=== PATIENT | female | born 2000 | race African-American/Black ===

== ENCOUNTER 2023-01-17 19:45 | Emergency (ER) | payer OTHER, SELFPAY ==
[2023-01-17 19:50] VITALS: BP 118/77; PULSE 79; RESP 16; TEMP 37.2; O2SAT 100; BMI 25.4
--- NOTE | 2023-01-17 20:08 | ED_ITS ---
HPI - Dental/Oral General Chief complaint: Dental/Oral Stated complaint: DENTAL PAIN Time Seen by Provider: 01/17/23 19:46 History of Present Illness HPI Narrative: patient is a 22-year-old female who presents to the emergency department for the evaluation of painful sores in her mouth. She states several days ago she was having oral sex with her male partner and now has noticed in the last day several vesicles on the inside of the left cheek and on the left side of the mouth. She does not believe her partner had any symptoms or lesions. She has no history of herpes. There has been no drainage from the area. No pain in the teeth. No medications given prior to arrival. She is not concerned for . Related Data Previous Rx's Medication Instructions Recorded acyclovir 800 mg tablet See Rx Instructions .Route 01/17/23 .COMPLEX #35 tabs ketorolac 10 mg tablet 10 mg PO TID PRN pain #10 tabs 01/17/23 ondansetron 4 mg disintegrating 4 mg PO Q6H PRN nausea and 01/17/23 tablet vomiting #12 tabs Allergies Allergy/AdvReac Type Severity Reaction Status Date / Time acetaminophen [From [place]] Allergy Hives Verified 01/17/23 19:54 hydrocodone [From [place]] Allergy Hives Verified 01/17/23 19:54 Penicillins Allergy Hives Verified 01/17/23 19:54 Review of Systems ROS Constitutional Denies: fever or chills Ears, nose, mouth, and throat Denies: throat pain Cardiovascular Denies: chest pain Respiratory Denies: shortness of breath or cough Gastrointestinal Denies: nausea or vomiting Musculoskeletal Denies: back pain Integumentary/Breast Denies: rash Exam Narrative Exam Narrative: Gen.: Awake, alert, in no distress Head: Normocephalic, atraumatic ENT: Moist mucous membranes, cluster of three vesicles on the inner corner of the left with no large open wounds or purulence. Small vesicles noted to the left posterior tongue. Airway is widely open and patent. Uvula midline. No trismus or drooling. No redness or swelling under the tongue. No petechiae or purpura Respiratory: No respiratory distress Psych: Normal mood and affect Neuro: No focal neuro deficit Skin: Warm, dry, intact Constitutional Vital Signs, click to edit/add: Last Vital Signs Temp 99.0 F 01/17/23 19:50 Pulse 79 01/17/23 19:50 Resp 16 01/17/23 19:50 BP 118/77 01/17/23 19:50 Pulse Ox 100 01/17/23 19:50 Course Vital Signs Vital signs: Vital Signs Temperature 99.0 F 01/17/23 19:50 Pulse Rate 79 01/17/23 19:50 Respiratory Rate 16 01/17/23 19:50 Blood Pressure 118/77 01/17/23 19:50 Pulse Oximetry 100 01/17/23 19:50 Temperature 99.0 F 01/17/23 19:50 Pulse Rate 79 01/17/23 19:50 Respiratory Rate 16 01/17/23 19:50 Blood Pressure 118/77 01/17/23 19:50 Pulse Oximetry 100 01/17/23 19:50 MDM - Dental/Oral MDM Narrative Medical decision making narrative: exam is consistent with gingivostomatitis, likely from HSV infection. Patient had an oral swab performed, results are pending. Patient will be treated with acyclovir, topical analgesia and NSAIDs. Follow-up with PCP for further evaluation and testing as indicated and return to the Emergency Room if symptoms change or worsen. Discharge Plan Discharge Chief Complaint: Dental/Oral Clinical Impression: Mouth sores Patient Disposition: Home, Self-Care Time of Disposition Decision: 20:05 Condition: Good Prescriptions / Home Meds: New acyclovir 800 mg tablet See Rx Instructions .ROUTE .COMPLEX Qty: 35 0RF Rx Instructions: 800 mg orally 5 times a day for 7 days ketorolac 10 mg tablet 10 mg PO TID PRN (Reason: pain) Qty: 10 0RF ondansetron 4 mg tablet,disintegrating 4 mg PO Q6H PRN (Reason: nausea and vomiting) Qty: 12 0RF Instructions: Gingivostomatitis (ED) Stand Alone Forms: Portal Instructions Referrals: [facility] [Primary Care Provider] - 1 week Discharge Date/Time: 01/17/23 20:36
[2023-01-17] MEDS: BENZOCAINE 30 ML, lidocaine HCL 15 ML MM (20:30)
--- NOTE | 2023-01-19 07:52 | PC.NURSE ---
PT CALLED TO GET RESULTS OF HSV TEST FROM VISIT 2 DAYS AG. INFORMED PT RESULTS ARE NOT YET BACK AND THAT IT DOES TAKE A FEW DAYS. LET PT KNOW WE WILL CALL HER IF RESULTS COME BACK POSITIVE. DENIES ANY OTHER QUESTIONS OR CONCERNS.
[2023-01-21 15:10] LABS: HSV-1 DNA Negative (Negative); HSV-2 DNA Negative (Negative)
== END 2023-01-17 20:36 | disposition home or self-care (01) ==
PROVIDERS: Physician Assistant; Emergency Provider Emergency Medicine
DX: K13.79 Other lesions of oral mucosa (principal)
CPT/HCPCS: 87529; 99283

== ENCOUNTER 2023-03-25 20:42 | Emergency (ER) | payer OTHER, SELFPAY ==
[2023-03-25 20:46] VITALS: BP 135/78; PULSE 86; RESP 16; TEMP 36.7; O2SAT 99; BMI 27.4
[2023-03-25 21:03] LABS: Bilirubin Urine NEGATIVE (NEGATIVE); Blood Urine NEGATIVE (NEGATIVE); Clarity Urine CLEAR (CLEAR); Color Urine LT. YELLOW (YELLOW); Glucose Urine UA NEGATIVE (NEGATIVE); HCG Qualitative Urine* NEGATIVE (NEGATIVE); Ketones Urine NEGATIVE (NEGATIVE); Leukocyte Esterase Urine TRACE (NEGATIVE); Nitrite Urine NEGATIVE (NEGATIVE); Protein Urine NEGATIVE (NEG/TRACE); Specific Gravity Urine >=1.030 (1.005-1.025); Urine Microscopic Indicated YES; Urobilinogen Urine 0.2 EU/dL (0.2-1.0)
--- NOTE | 2023-03-25 21:11 | ED.FEMALEGU1 ---
HPI - Female Genitourinary General Chief complaint: Urogenital-Female Stated complaint: UTI Time Seen by Provider: 03/25/23 20:48 Source: patient Mode of arrival: walk-in Limitations: no limitations History of Present Illness HPI Narrative: Patient is a 22-year-old female presents the emergency department for urinary tract infection symptoms over the last several days. She states that she went to [place] emergency department two days ago and gave a urine specimen but did not stay to be seen by her provider since she was not prescribed any medications. She states she had to wait for over two hours in the lobby so she left. She did not contact her PCP about her urine results but noted on her online lab tests that she had moderate leuk esterase in her urine. She continues to have some burning with urination. No flank pain. She does have minimal low back pain. No fevers or vomiting. She is not concerned for . Related Data Previous Rx's Medication Instructions Recorded acyclovir 800 mg tablet See Rx Instructions .Route 01/17/23 .COMPLEX #35 tabs ketorolac 10 mg tablet 10 mg PO TID PRN pain #10 tabs 01/17/23 ondansetron 4 mg disintegrating 4 mg PO Q6H PRN nausea and 01/17/23 tablet vomiting #12 tabs cephalexin 500 mg capsule 500 mg PO Q8H 5 days #15 caps 03/25/23 fluconazole 150 mg tablet 150 mg PO DAILY 1 dose #1 tab 03/25/23 (Diflucan) phenazopyridine 200 mg tablet 200 mg PO Q8H 2 days #6 tabs 03/25/23 (Pyridium) Allergies Allergy/AdvReac Type Severity Reaction Status Date / Time acetaminophen [From [place]] Allergy Hives Verified 01/17/23 19:54 hydrocodone [From [place]] Allergy Hives Verified 01/17/23 19:54 Penicillins Allergy Hives Verified 01/17/23 19:54 Review of Systems ROS Constitutional Denies: fever or chills Cardiovascular Denies: chest pain Respiratory Denies: shortness of breath or cough Gastrointestinal Denies: abdominal pain, nausea or vomiting Genitourinary Reports: painful urination Musculoskeletal Reports: back pain Integumentary/Breast Denies: rash Neurological Denies: headache PFSH PFSH Social History Smoking status: Never smoker Exam Narrative Exam Narrative: Gen.: Awake, alert, in no distress Head: Normocephalic, atraumatic ENT: Moist mucous membranes Respiratory: No respiratory distress Gastrointestinal: Abdomen is soft, nondistended and nontender to palpation; no CVA tenderness Extremities: Moves extremities equally Psych: Normal mood and affect Neuro: No focal neuro deficit Skin: Warm, dry, intact Constitutional Vital Signs, click to edit/add: Last Vital Signs Temp 98.2 F 03/25/23 21:19 Pulse 78 03/25/23 21:19 Resp 16 03/25/23 21:19 BP 128/64 03/25/23 21:19 Pulse Ox 100 03/25/23 21:19 O2 Del Method Room Air 03/25/23 20:46 Course Vital Signs Vital signs: Vital Signs Temperature 98.1 F 03/25/23 20:46 Pulse Rate 86 03/25/23 20:46 Respiratory Rate 16 03/25/23 20:46 Blood Pressure 135/78 03/25/23 20:46 Pulse Oximetry 99 03/25/23 20:46 Oxygen Delivery Method Room Air 03/25/23 20:46 Temperature 98.2 F 03/25/23 21:19 Pulse Rate 78 03/25/23 21:19 Respiratory Rate 16 03/25/23 21:19 Blood Pressure 128/64 03/25/23 21:19 Pulse Oximetry 100 03/25/23 21:19 Oxygen Delivery Method Room Air 03/25/23 20:46 MDM - Female Genitourinary MDM Narrative Medical decision making narrative: Patient treated for urinary tract infection, trace esterase noted on urine specimen. She is given Pyridium, Keflex. She requests Diflucan to prevent yeast infection. 1st dose is given in the Emergency Room. test is negative, follow-up with PCP and return to the Emergency Room if symptoms change or worsen. Patient with stable vital signs, benign exam Medical Records Attestation: I reviewed the patient's medical records. Lab Data Attestation: I reviewed the patient's lab results. Labs: Lab Results 03/25/23 Range/Units 20:55 Urine Color Lt. yellow (YELLOW) Urine Clarity Clear (CLEAR) Urine pH 6.0 (5.0-9.0) Ur Specific [place] >=1.030 A (1.005-1.025) Urine Protein Negative (NEG/TRACE) mg/dL Urine Glucose (UA) Negative (NEGATIVE) mg/dL Urine Ketones Negative (NEGATIVE) mg/dL Urine Occult Blood Negative (NEGATIVE) Urine Nitrite Negative (NEGATIVE) Urine Bilirubin Negative (NEGATIVE) Urine Urobilinogen 0.2 (0.2-1.0) EU/dL Ur Leukocyte Esterase Trace A (NEGATIVE) Urine RBC 0-2 (0-2) #/HPF Urine WBC 0-2 A (NONE SEEN) #/HPF Ur Squamous Epith Cells Rare (NONE/RARE) #/LPF Urine Crystals None seen (None Seen) #/HPF Urine Bacteria Small A (NONE SEEN) #/HPF Urine Casts None seen (NONE SEEN) #/LPF Urine Mucus Small A (NONE SEEN) Ur Culture Indicated? Yes Urine HCG, Qual Negative (NEGATIVE) Discharge Plan Discharge Chief Complaint: Urogenital-Female Clinical Impression: UTI (urinary tract infection) Patient Disposition: Home, Self-Care Time of Disposition Decision: 21:09 Condition: Good Prescriptions / Home Meds: New cephalexin 500 mg capsule 500 mg PO Q8H 5 Days Qty: 15 0RF phenazopyridine [Pyridium] 200 mg tablet 200 mg PO Q8H 2 Days Qty: 6 0RF fluconazole [Diflucan] 150 mg tablet 150 mg PO DAILY Qty: 1 0RF Rx Instructions: administer at the end of your antibiotics No Action acyclovir 800 mg tablet See Rx Instructions .ROUTE .COMPLEX Qty: 35 0RF Rx Instructions: 800 mg orally 5 times a day for 7 days ketorolac 10 mg tablet 10 mg PO TID PRN (Reason: pain) Qty: 10 0RF ondansetron 4 mg tablet,disintegrating 4 mg PO Q6H PRN (Reason: nausea and vomiting) Qty: 12 0RF Instructions: Urinary Tract Infection in Women (ED) Stand Alone Forms: Portal Instructions Referrals: [facility] [Primary Care Provider] - 1 week Discharge Date/Time: 03/25/23 21:20
[2023-03-25 21:14] LABS: Bacteria Urine SMALL #/HPF (NONE SEEN); Cast Seen? NONE SEEN #/LPF (NONE SEEN); Crystals Seen? None Seen #/HPF (None Seen); Mucus Urine SMALL (NONE SEEN); RBC Urine 0-2 #/HPF (0-2); Squamous Epithelial Cell Urine RARE #/LPF (NONE/RARE); Urine Culture Indicated YES; WBC Urine 0-2 #/HPF (NONE SEEN)
[2023-03-25] MEDS: FLUCONAZOLE 150 MG TABLET PO (21:18)
[2023-03-25] MEDS: CEPHALEXIN 500 MG CAPSULE PO (21:18)
[2023-03-25 21:19] VITALS: BP 128/64; PULSE 78; RESP 16; TEMP 36.8; O2SAT 100
== END 2023-03-25 21:20 | disposition home or self-care (01) ==
PROVIDERS: Physician Assistant; Emergency Provider Internal Medicine
DX: N39.0 Urinary tract infection, site not specified (principal)
CPT/HCPCS: 81001; 84703; 87086; 99283

== ENCOUNTER 2024-07-01 21:06 | Outpatient (REF) | payer OTHER, SELFPAY ==
[2024-07-11 16:08] LABS: Age Gdln ACOG Testing Note (.); IGP, rfx Aptima HPV ASCU Note (.)
== END 2024-07-01 21:07 | disposition home or self-care (01) ==
LOC: LAB 21:06
PROVIDERS: Visit Provider Obstetrics & Gynecology
DX: Z01.419 Encounter for gynecological examination (general) (routine) without abnormal findings (principal)
CPT/HCPCS: 88175

== ENCOUNTER 2024-07-22 10:27 | Outpatient (REF) | payer OTHER, SELFPAY | END 2024-07-22 10:28 | disposition home or self-care (01) | LOC: LAB 10:27 | PROVIDERS: Visit Provider Obstetrics & Gynecology | DX: R87.612 Low grade squamous intraepithelial lesion on cytologic smear of cervix (LGSIL) (principal) | CPT/HCPCS: 88305 ==

== ENCOUNTER 2025-01-20 12:17 | Outpatient (REF) | payer OTHER, SELFPAY | END 2025-01-20 12:18 | disposition home or self-care (01) | LOC: LAB 12:17 | PROVIDERS: Visit Provider Obstetrics & Gynecology | DX: Z01.42 Encounter for cervical smear to confirm findings of recent normal smear following initial abnormal smear (principal) | CPT/HCPCS: 88175 ==